=== PATIENT | female | born 1960 | race Caucasian/White ===

== ENCOUNTER 2024-06-28 13:03 | Inpatient (IN) | payer MEDICARE, OTHER ==
[~2024-06-28] VITALS: Ht 170.2 cm; Wt 86.5 kg
[~2024-06-28 13:03] MED LIST: ASPI325 PO; CLOP75 PO; LISI20 PO; METO25ER PO; VITAMIN D PO
[2024-06-28] MEDS ORDERED: HYDROmorphone HCl/Pf 1MG SYR IV ONE ×2 (13:55→16:20)
[2024-06-28] MEDS ORDERED: XIFAXAN550 MG PO (14:29)
[2024-06-28] MEDS ORDERED: CARVEDILOL6.25 MG PO (14:29)
[2024-06-28] MEDS ORDERED: ACAMPROSATE CA333 MG PO (14:29)
[2024-06-28] MEDS ORDERED: K-Dur20 MEQ PO (14:29)
[2024-06-28] MEDS ORDERED: BUPR150ER PO (14:29)
[2024-06-28] MEDS ORDERED: CONSTULOSE10 GM/155 PO (14:30)
[2024-06-28] MEDS ORDERED: FUROSEMIDE20 MG PO (14:30)
[2024-06-28] MEDS ORDERED: LOSA50 PO (14:30)
[2024-06-28] MEDS ORDERED: OxyCODONE HCL 5 MG TAB PO PRN (17:50)
[2024-06-28] MEDS ORDERED: Ondansetron HCl 2 MG / ML 2ML Vial ONE (17:53)
[2024-06-28] MEDS ORDERED: Naloxone HCl 0.4MG / ML 1ML Vial IV PRN (17:55)
[2024-06-28] MEDS ORDERED: HYDROmorphone HCl/Pf 1MG SYR IV PRN (17:55)
[2024-06-28] MEDS ORDERED: Ondansetron HCl 2 MG / ML 2ML Vial IV PRN (17:55)
[2024-06-28] MEDS ORDERED: FLU VACC TS2024-25(6MOS UP)/PF 45 MCG/0.5 ML SYRINGE IM SCH (17:55)
[2024-06-28] MEDS ORDERED: Acetaminophen 325 MG TABLET PO PRN (17:55)
[2024-06-28 18:26] LABS: BASOPHILS ABSOLUTE AUTO 0.09 K/mm3 (0.00-0.23); BASOPHILS PERCENT AUTO 1 % (0-2); EOSINOPHILS ABSOLUTE AUTO 0.05 K/mm3 (0.00-0.68); EOSINOPHILS PERCENT AUTO 1 % (0-6); Hematocrit 36.8 % (33.0-51.0); Hemoglobin 11.8 g/dL (11.5-16.0); IMMATURE GRAN ABSOLUTE AUTO 0.08 K/mm3 (0.00-0.10); IMMATURE GRAN PERCENT AUTO 1 % (0-1); LYMPHOCYTES ABSOLUTE AUTO 1.07 K/mm3 (0.84-5.20); LYMPHOCYTES PERCENT AUTO 11 % (21-46); MONOCYTES ABSOLUTE AUTO 0.41 K/mm3 (0.16-1.47); MONOCYTES PERCENT AUTO 4 % (4-13); Mean Corpuscular HGB 35.4 pg (26.0-34.0); Mean Corpuscular HGB Conc 32.1 g/dL (31.5-36.5); Mean Corpuscular Volume 111 fL (80-100); NEUTROPHILS ABSOLUTE AUTO 8.31 K/mm3 (1.96-9.15); NEUTROPHILS PERCENT AUTO 83 % (41-73); NRBC ABSOLUTE 0.02 K/mm3 (0.00-0.02); NRBC Auto 0.2 /100 WBC (0.0-0.2); Platelet Count 85 K/mm3 (150-400); RDW Coefficient Variation 14.1 % (11.7-14.2); RDW Standard Deviation 57.6 fL (35.1-46.3); Red Blood Cell Count 3.33 M/mm3 (3.80-5.20); White Blood Cell Count 10.01 K/mm3 (4.00-11.30)
[2024-06-28 18:35] LABS: Mean Platelet Volume 13.7 fL (9.1-12.4)
[2024-06-28 18:48] LABS: Albumin, Blood 1.7 g/dL (3.4-5.0); Albumin/Globulin Ratio 0.4 (0.8-1.8); Calcium, Blood 8.7 mg/dL (8.5-10.1); Creatinine, Blood 0.63 mg/dL (0.40-1.00); Globulin, Blood 3.8 g/dL (2.2-4.0); Potassium, Blood 4.4 mmol/L (3.5-5.5); Total Protein, Blood 5.5 g/dL (6.4-8.2)
[2024-06-28] MEDS ORDERED: RifAXIMin 550 MG Tablet PO SCH (21:00)
[2024-06-28] MEDS ORDERED: Docusate Sodium 100 MG Cap PO SCH (21:00)
[2024-06-28] MEDS ORDERED: Carvedilol 6.25 MG Tab PO SCH (21:00)
[2024-06-28] MEDS ORDERED: Lactulose 10 GM/15 ML UDC PO SCH (21:00)
[2024-06-28 22:24] VITALS: BP 146/69
[2024-06-29 02:14] VITALS: BP 135/56
--- NOTE | 2024-06-29 04:33 | NUR ---
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 SHE HAS NAUSEA AND SEVERE R HIP PAIN. PT REPOSTIONED WITH SEVERAL PILLOWS AND WE FOUND A POSITION FOR HER LEG THAT IS MORE COMFORTABLE. APPLIED ICE PACK TO R HIP. PLACED PUREWICK FOR PT COMFORT. ZOFRAN IV FOR NAUSEA. PT ASKING FOR IV DILAUDID FOR R HIP PAIN. DOSE IS 0.5-1MG. HAVE BEEN GIVING 0.5MG AND THEN WAITING 5-15 MINUTES AND THEN GIVING THE OTHER 0.5MG BECAUSE DOING IT THIS WAY SEEMS TO HELP WITH HER NAUSEA, RATHER THAN GIVING 1MG ONE LARGE BOLUS. PT HAS NOT STOOD UP FOR ME THIS SHIFT. SHE IS TOO PAINFUL AND FEARFUL. SHE WILL NEED PHYSICAL THERAPY TO TEACH HER SOME TECHNIQUES TO USE AND TO DETERMINE A SAFE DISCHARGE PLAN, PT LIVES ALONE AND DOESNT HAVE ANYONE AVAILABLE TO TAKE CARE OF HER 24/02.
[2024-06-29 05:38] LABS: BASOPHILS ABSOLUTE AUTO 0.05 K/mm3 (0.00-0.23); BASOPHILS PERCENT AUTO 1 % (0-2); EOSINOPHILS ABSOLUTE AUTO 0.01 K/mm3 (0.00-0.68); EOSINOPHILS PERCENT AUTO 0 % (0-6); Hematocrit 39.8 % (33.0-51.0); Hemoglobin 13.1 g/dL (11.5-16.0); IMMATURE GRAN ABSOLUTE AUTO 0.03 K/mm3 (0.00-0.10); IMMATURE GRAN PERCENT AUTO 0 % (0-1); LYMPHOCYTES ABSOLUTE AUTO 1.15 K/mm3 (0.84-5.20); LYMPHOCYTES PERCENT AUTO 17 % (21-46); MONOCYTES ABSOLUTE AUTO 0.55 K/mm3 (0.16-1.47); MONOCYTES PERCENT AUTO 8 % (4-13); Mean Corpuscular HGB 35.4 pg (26.0-34.0); Mean Corpuscular HGB Conc 32.9 g/dL (31.5-36.5); Mean Corpuscular Volume 108 fL (80-100); NEUTROPHILS PERCENT AUTO 73 % (41-73); Platelet Count 91 K/mm3 (150-400); RDW Coefficient Variation 14.1 % (11.7-14.2); White Blood Cell Count 6.69 K/mm3 (4.00-11.30)
[2024-06-29 06:10] LABS: Albumin, Blood 2.1 g/dL (3.4-5.0); Albumin/Globulin Ratio 0.5 (0.8-1.8); Bilirubin, Total 4.4 mg/dL (0.1-1.0); Bun/Creatinine Ratio 21.7 (12.0-20.0); Calcium, Blood 9.1 mg/dL (8.5-10.1); Creatinine, Blood 0.69 mg/dL (0.40-1.00); Globulin, Blood 3.9 g/dL (2.2-4.0); Magnesium, Blood 1.7 mg/dL (1.6-2.4); Potassium, Blood 4.4 mmol/L (3.5-5.5)
[2024-06-29 07:22] VITALS: BP 129/59
[2024-06-29] MEDS ORDERED: Misc. Tablet PO SCH (09:00)
[2024-06-29] MEDS ORDERED: Furosemide 20 MG Tab PO SCH (09:00)
[2024-06-29] MEDS ORDERED: Potassium Chloride 20 MEQ TabCR PO SCH (09:00)
[2024-06-29] MEDS ORDERED: BuPROPion HCl SR 100 MG TabCR PO SCH (09:00)
[2024-06-29] MEDS ORDERED: Losartan Potassium 50 MG Tab PO SCH (09:00)
[2024-06-29] MEDS ORDERED: Enoxaparin 40 MG/0.4 ML SYR SC SCH (09:00)
[2024-06-29] MEDS ORDERED: Prochlorperazine Maleate 5 MG Tab PO PRN (09:55)
[2024-06-29] MEDS ORDERED: HYDROmorphone HCl 2 MG Tab PO PRN (09:55)
[2024-06-29] MEDS ORDERED: Losartan Potassium 25 MG Tab PO SCH (10:00)
[2024-06-29] MEDS ORDERED: Lactulose 20 GM/30 ML UDC PO SCH (10:00)
--- NOTE | 2024-06-29 10:49 | NUR ---
CONTACTED [facility] WHO ADVISED THIS NURSE THAT DR LANE IS IN SURGERY AND WILL NEED TO CONTACT ON CELL PHONE. TRIED DR LANE HOWEVER UNABLE TO REACH MESSAGE LEFT FOR RETURN CALL
--- NOTE | 2024-06-29 14:28 | NUR ---
REQUSET FOR THERAPY DOG VISIT PLACED. THERAPY DOG VISIT PATIENT AND PATIENT REQUESTS FUTHER VISIT. PATIENT ENJOYED VISIT
--- NOTE | 2024-06-29 15:09 | NUR ---
LATE ENTRY: 1315- ORTHO DR LANE CONSULTED PATIENT AT BEDSIDE. PATIETN WEIGHT BEARING SEBASTIÁN. PATIENT ORDERED CT- PENDING RADIOLOGY TIME.
[2024-06-29 16:01] VITALS: BP 91/58
[2024-06-29] MEDS ORDERED: Lactated Ringer's 1,000 ML IV SCH ×3 (16:10→17:00)
--- NOTE | 2024-06-29 16:55 | NUR ---
CONTACTED DR PRICE REGARDING PATIENT BP READING OF 104/48 (65) AND 91/58 (68) WITH OUTPUT OF 175. RECEIVED ORDER FOR BOLUS OF LR AT 500/HR FOR 2 HOURS AND THEN LR AT 75/HR FOR MAINTANCE FLUIDS. PATIENT PULSE OX 78% ON RA, OXYGEN PLACED ON PATIENT AND TITRATED TO 3L TO MAINTAIN SATS OVER 93% DR AWARE OF OXYGEN PLACEMENT. SEE E-MAR FOR ORDERS. PATIENT RESTING COMFORTALBLY IN BED WITH CALL LIGHT AT SIDE.
--- NOTE | 2024-06-29 18:14 | NUR ---
PATIENT A/O X 4. PATIENT ON 3L OF OXYGEN PULSE OX 95%, PATIENT HAS LR INFUSING AT 75/HR AFTER A BOLUS OF LACTATED RINGER OF 1000ML. PATIENT HAS CT SCAN OF RIGHT PELVIC AREA COMPLETED. PATIENT IS CURRENTLY WEIGHT BEARING TOLERATED HOWEVER PATIENT HAS DIFFICULTY MOVING. PATIENT WILL CONTINUE TO WORK WITH PHYSICAL THERAPY PENDING DISPOSTION.
[2024-06-29 19:51] VITALS: BP 102/49
[2024-06-29] MEDS ORDERED: Prochlorperazine Edisylate 10 mg Vial IV PRN (20:05)
[2024-06-30] VITALS (49 sets, daily range): BP systolic 81–128; BP diastolic 38–66
[2024-06-30 07:02] LABS: Albumin, Blood 1.9 g/dL (3.4-5.0); Albumin/Globulin Ratio 0.5 (0.8-1.8); Bilirubin, Total 3.4 mg/dL (0.1-1.0); Bun/Creatinine Ratio 16.2 (12.0-20.0); Calcium, Blood 8.9 mg/dL (8.5-10.1); Creatinine, Blood 1.85 mg/dL (0.40-1.00); Globulin, Blood 3.6 g/dL (2.2-4.0); Potassium, Blood 5.1 mmol/L (3.5-5.5); Total Protein, Blood 5.5 g/dL (6.4-8.2)
--- NOTE | 2024-06-30 07:29 | NUR ---
PRIVATE WEALTH ADVISOR SUMMARY NEW IV COMPAZINE ORDER HAS PREVENTED PT FROM VOMITTING. GIVING 1MG IV DILAUDID IN 0.5MG INCREMENTS 10-15 MINUTES APART TO PREVENT N/V. BLOOD PRESSURES HAVE BEEN A LITTLE SOFT BUT PT DENIES SYMPTOMS AND SHE HAS BEEN ALERT AND ORIENTED. HER URINE OUTPUT HAS BEEN A LITTLE LOW (SEE I&O) 0731: PT BLOOD PRESSURE HAS GOTTEN EVEN LOWER (80/40) AND MORNING LABS ARE CONCERNING. DONYA, THE DAY SHIFT RN IS CALLING THE DOCTOR NOW. PT REMAINS ASYMPTOMATIC AT THIS TIME.
[2024-06-30] MEDS ORDERED: Lactated Ringer's 1,000 ML IV SCH (07:35)
--- NOTE | 2024-06-30 07:36 | NUR ---
CONTACTED DR PRICE REGARDING BP 75/31 RIGHT 81/42. PATIENT IS A/O X 4, PATIENT CURRENTLY ON O2 2L WITH PULSE OX 95%. PATIENT TO TRANSFER TO PCU. PATIENT HAS BEEN ADVISED OF TRANSFER
[2024-06-30] MEDS ORDERED: FentaNYL Citrate 50 MCG/ML 2 ML Injection IV PRN (07:40)
[2024-06-30] MEDS ORDERED: Albumin (Human) 25gm/100ml 100 ML IV SCH (07:45)
[2024-06-30] MEDS ORDERED: NS 500 ML IV SCH (08:00)
[2024-06-30 10:23] LABS: BASOPHILS ABSOLUTE AUTO 0.04 K/mm3 (0.00-0.23); BASOPHILS PERCENT AUTO 0 % (0-2); EOSINOPHILS ABSOLUTE AUTO 0.04 K/mm3 (0.00-0.68); EOSINOPHILS PERCENT AUTO 0 % (0-6); Hematocrit 32.5 % (33.0-51.0); Hemoglobin 10.6 g/dL (11.5-16.0); IMMATURE GRAN ABSOLUTE AUTO 0.09 K/mm3 (0.00-0.10); IMMATURE GRAN PERCENT AUTO 1 % (0-1); LYMPHOCYTES ABSOLUTE AUTO 1.38 K/mm3 (0.84-5.20); LYMPHOCYTES PERCENT AUTO 13 % (21-46); MONOCYTES ABSOLUTE AUTO 1.02 K/mm3 (0.16-1.47); MONOCYTES PERCENT AUTO 9 % (4-13); Mean Corpuscular HGB 35.8 pg (26.0-34.0); Mean Corpuscular HGB Conc 32.6 g/dL (31.5-36.5); Mean Corpuscular Volume 110 fL (80-100); NEUTROPHILS ABSOLUTE AUTO 8.34 K/mm3 (1.96-9.15); NEUTROPHILS PERCENT AUTO 77 % (41-73); RDW Coefficient Variation 14.3 % (11.7-14.2); RDW Standard Deviation 57.3 fL (35.1-46.3); Red Blood Cell Count 2.96 M/mm3 (3.80-5.20); White Blood Cell Count 10.91 K/mm3 (4.00-11.30)
[2024-06-30 10:25] LABS: Mean Platelet Volume 13.4 fL (9.1-12.4)
--- NOTE | 2024-06-30 10:35 | NUR ---
REPORT CALLED TO ICU TALKED TO LETA. PATIENT TRANSPORTED VIA BED WITH STAFF.
[2024-06-30 10:44] LABS: Platelet Count 78 K/mm3 (150-400)
--- NOTE | 2024-06-30 12:41 | NUR ---
PATIENT ARRIVED TO UNIT AND WAS TRANSFERRED TO NEW BED VIA SLIDER SHEET. VITAL SIGNS STABLE AND ORIENTED TO UNIT.
--- NOTE | 2024-06-30 12:48 | NUR ---
PT TRANSFER FROM MEDICAL FLOOR: PT TRANSFER FROM MEDICAL FLOOR PCU STATUS TO ICU 2 FOR HYPOTENSION. PT A/Ox4 AND PLEASANT W/CARE. PT SINCE HAS TRANSFERRED TO PCU 11, REPORT GIVEN TO EVELYN VALENCIA.
[2024-06-30] MEDS ORDERED: Midodrine 5 MG Tab PO SCH (14:00)
--- NOTE | 2024-06-30 14:12 | NUR ---
PATIENT ATE LUNCH AND VISITED WITH NEPHEW, STRAIGHT CATH URINE ANALYSIS DONE AND SENT OFF.
[2024-06-30 15:09] LABS: Source, Urine Foley catheter
[2024-06-30 15:17] LABS: Appearance, Urine Cloudy (Clear); Bilirubin, Urine Neg (Neg); Blood, Urine Neg (Neg); Color, Urine Yellow (P-Yellow); Glucose Qualitative, Urine Neg (Neg); Ketones, Urine Neg (Neg); Leukocyte Esterase, Urine 1+ (Neg); Nitrite, Urine Neg (Neg); Protein, Urine 2+ (Neg); Urobilinogen, Urine 1+ (Normal)
[2024-06-30 15:33] LABS: Bacteria Many /hpf; Mucus Heavy (0-Heavy); Red Blood Cells, Urine 0-2 /hpf (0-2); Squamous Epithelial Cells Few /hpf (Few)
--- NOTE | 2024-06-30 15:56 | NUR ---
CALL PLACED TO AND DID NOT ANSWER, VOICEMAIL LEFT TO CALL BACK REGARDING UA RESULTS AND BLOOD PRESSURE MAP. AWAITING FOR A CALL BACK.
--- NOTE | 2024-06-30 16:25 | NUR ---
TRANSFER NOTE: REPORT WAS CALLED TO OFFICE CLINICIAN TAKING PATIENT AND MADE AWARE OF THE LOW BLOOD PRESSURE READINGS. PATIENT AWARE OF THE TRANSFER AND WILL GO OVER VIA BED WITH ALL PERSONAL BELONGINGS.
--- NOTE | 2024-06-30 16:32 | NUR ---
DARRELL KULKARNI WAS MADE AWARE OF THE PATIENTS TRANSFER TO ICU 2. ASKED ABOUT VISITING HOURS WILL NOTIFY THE RECEIVING RN THAT DARRELL PLANS TO VISIT LATER TODAY.
[2024-06-30] MEDS ORDERED: CefTRIAXone Sodium 1,000 MG in NS 100 ML IV SCH (17:00)
[2024-06-30 18:11] LABS: Albumin, Blood 2.4 g/dL (3.4-5.0); Albumin/Globulin Ratio 0.8 (0.8-1.8); Bilirubin, Total 2.9 mg/dL (0.1-1.0); Bun/Creatinine Ratio 17.2 (12.0-20.0); Calcium, Blood 8.7 mg/dL (8.5-10.1); Creatinine, Blood 2.09 mg/dL (0.40-1.00); Magnesium, Blood 1.9 mg/dL (1.6-2.4); Potassium, Blood 4.4 mmol/L (3.5-5.5); Total Protein, Blood 5.4 g/dL (6.4-8.2)
--- NOTE | 2024-06-30 18:40 | NUR ---
SHIFT SUMMARY: PT TRANSFERRED BACK TO ICU 2 ICU STATUS FOR HYPOTENSION. PT A/Ox4 AND PLEASANT W/CARE. BP LOW, SBP 90s. PT DENIES CHEST PAIN OR PRESSURE. MONITOR SHOWS SINUS RYTHM RATE 80s. SPO2>95% ON 2L NC. DEE CALLED REGARDING CRITICAL LACTIC ACID. DEE WOULD LIKE TO START PT ON LEVOPHED GTT. PT DENIES SIGNIFICANT PAIN, ABLE TO BE RELIEVED W/ REPOSITIONING. PT HAD STRAIGHT CATH X1 IN PCU. CALL LIGHT IN REACH. WILL REPORT TO ONCOMING RN.
--- NOTE | 2024-06-30 21:08 | NUR ---
ASSUMED CARE OF PT AT 1900. REPORT RECEIVED AT BEDSIDE. PT PRESENTS IN BED. SLEEPING. HAVE NOTED RESPIRATION TREND TO 8-10 AT TIMES. PT AWAKENS EASILY WITHOUT ANY COMPLAINTS OF DYSPNEA OR SOB. PT ALERT AND ORIENTED WHILE AWAKE. PLEASANT AND COOPERATIVE WITH CARE AND ASSESSMENT.
[2024-07-01] VITALS (82 sets, daily range): BP systolic 74–162; BP diastolic 32–94
--- NOTE | 2024-07-01 01:05 | NUR ---
PT HAS NOT HAD ANY REQUESTS FOR PAIN MEDICATION. IS ABLE TO TURN HERSELF IN BED. PUREWICK IN PLACE. LEVOPHED HAS BEEN TITRATED DOWN TO 2 MCG'S/MIN. BLOOD PRESSURES REAMIN WITH MAP > 65.
--- NOTE | 2024-07-01 08:00 | NUR ---
Major of care: Patient sleepy but arouses to voice. Oriented x4 with no discomfort. MAPs maintained at greater than or equal to 65 on 2 mcgs of norepi, in NSR, pulses all palpable. Attempted to wean O2 but she de-saturated to 83% so placed back on 3L NC. Bladder scan showing 400cc of urine so straight cathed x1 with 350cc out. Good appetite. Will continue to try to wean norepi gtt as able.
[2024-07-01 09:59] LABS: BASOPHILS ABSOLUTE AUTO 0.09 K/mm3 (0.00-0.23); BASOPHILS PERCENT AUTO 1 % (0-2); EOSINOPHILS ABSOLUTE AUTO 0.16 K/mm3 (0.00-0.68); EOSINOPHILS PERCENT AUTO 2 % (0-6); Hematocrit 29.9 % (33.0-51.0); Hemoglobin 9.8 g/dL (11.5-16.0); IMMATURE GRAN ABSOLUTE AUTO 0.06 K/mm3 (0.00-0.10); IMMATURE GRAN PERCENT AUTO 1 % (0-1); LYMPHOCYTES PERCENT AUTO 20 % (21-46); MONOCYTES ABSOLUTE AUTO 1.09 K/mm3 (0.16-1.47); MONOCYTES PERCENT AUTO 14 % (4-13); Mean Corpuscular HGB 35.3 pg (26.0-34.0); Mean Corpuscular HGB Conc 32.8 g/dL (31.5-36.5); Mean Corpuscular Volume 108 fL (80-100); NEUTROPHILS ABSOLUTE AUTO 5.01 K/mm3 (1.96-9.15); NEUTROPHILS PERCENT AUTO 63 % (41-73); Platelet Count 70 K/mm3 (150-400); RDW Coefficient Variation 13.9 % (11.7-14.2); Red Blood Cell Count 2.78 M/mm3 (3.80-5.20); White Blood Cell Count 8.01 K/mm3 (4.00-11.30)
[2024-07-01 10:20] LABS: Albumin, Blood 2.2 g/dL (3.4-5.0); Albumin/Globulin Ratio 0.8 (0.8-1.8); Bilirubin, Total 2.3 mg/dL (0.1-1.0); Bun/Creatinine Ratio 25.6 (12.0-20.0); Calcium, Blood 8.5 mg/dL (8.5-10.1); Creatinine, Blood 1.6 mg/dL (0.40-1.00); Globulin, Blood 2.9 g/dL (2.2-4.0); Magnesium, Blood 1.9 mg/dL (1.6-2.4); Phosphorus, Blood 3.3 mg/dL (2.5-4.9); Potassium, Blood 4.4 mmol/L (3.5-5.5); Total Protein, Blood 5.1 g/dL (6.4-8.2)
[2024-07-01] MEDS ORDERED: Midodrine 5 MG Tab PO SCH (14:00)
--- NOTE | 2024-07-01 18:00 | NUR ---
Shift summary: Remains drowsy throughout the day but arounses to verbal stimuli/light touch & is oriented & cooperative. Remains in NSR in the 60s but unable to wean off norepi gtt - currently at 3 mcgs/kg with a MAP of 65. 3L NC is keeping her oxygen saturation in the high 90s. She does have a congested cough. She experienced urinary retention throughout the day necessitating straight cath x2 with roughly 700cc of output. Poor appetite. She complains of pain to the R hip but due to severe drowsiness only medicated with Tylenol. Will continue to monitor & attempt to wean norepi gtt.
[2024-07-02] VITALS (41 sets, daily range): BP systolic 115–152; BP diastolic 40–100
[2024-07-02] MEDS ORDERED: OxyCODONE HCL 5 MG TAB PO PRN (02:00)
[2024-07-02 03:38] LABS: BASOPHILS PERCENT AUTO 1 % (0-2); EOSINOPHILS ABSOLUTE AUTO 0.21 K/mm3 (0.00-0.68); EOSINOPHILS PERCENT AUTO 3 % (0-6); Hematocrit 29.7 % (33.0-51.0); IMMATURE GRAN ABSOLUTE AUTO 0.07 K/mm3 (0.00-0.10); IMMATURE GRAN PERCENT AUTO 1 % (0-1); LYMPHOCYTES ABSOLUTE AUTO 1.81 K/mm3 (0.84-5.20); LYMPHOCYTES PERCENT AUTO 23 % (21-46); MONOCYTES ABSOLUTE AUTO 1.15 K/mm3 (0.16-1.47); MONOCYTES PERCENT AUTO 15 % (4-13); Mean Corpuscular HGB 35.7 pg (26.0-34.0); Mean Corpuscular HGB Conc 33.7 g/dL (31.5-36.5); Mean Corpuscular Volume 106 fL (80-100); Mean Platelet Volume 12.7 fL (9.1-12.4); NEUTROPHILS ABSOLUTE AUTO 4.48 K/mm3 (1.96-9.15); NEUTROPHILS PERCENT AUTO 57 % (41-73); Platelet Count 80 K/mm3 (150-400); RDW Coefficient Variation 13.8 % (11.7-14.2); RDW Standard Deviation 53.3 fL (35.1-46.3); White Blood Cell Count 7.82 K/mm3 (4.00-11.30)
[2024-07-02 03:54] LABS: Magnesium, Blood 1.9 mg/dL (1.6-2.4)
[2024-07-02 04:10] LABS: Albumin, Blood 2.2 g/dL (3.4-5.0); Albumin/Globulin Ratio 0.8 (0.8-1.8); Bilirubin, Total 3.6 mg/dL (0.1-1.0); Bun/Creatinine Ratio 31.5 (12.0-20.0); Creatinine, Blood 1.11 mg/dL (0.40-1.00); Globulin, Blood 2.9 g/dL (2.2-4.0); Phosphorus, Blood 2.8 mg/dL (2.5-4.9); Potassium, Blood 4.5 mmol/L (3.5-5.5); Total Protein, Blood 5.1 g/dL (6.4-8.2)
[2024-07-02 04:26] LABS: Source, Urine Foley catheter
[2024-07-02 04:30] LABS: Bilirubin, Urine Neg (Neg); Blood, Urine 2+ (Neg); Glucose Qualitative, Urine Neg (Neg); Ketones, Urine Neg (Neg); Leukocyte Esterase, Urine 1+ (Neg); Nitrite, Urine Neg (Neg); Protein, Urine 1+ (Neg); Specific Gravity, Urine 1.015 (1.003-1.022); Urobilinogen, Urine NORM (Normal)
[2024-07-02 04:40] LABS: Appearance, Urine Clear (Clear); Color, Urine Yellow (P-Yellow)
[2024-07-02 04:49] LABS: Amorphous Light (0-Heavy); Bacteria Rare /hpf; Red Blood Cells, Urine 0-2 /hpf (0-2); Squamous Epithelial Cells Rare /hpf (Few); Yeast/Fungi Urine Few /hpf
--- NOTE | 2024-07-02 05:41 | NUR ---
SHIFT SUMMERY PT HAS BEEN ALERT AND ORIENTED TO SELF AND PLACE. SHE HAS BEEN SB-SR ON THE AUTOMOBILE ACCESSORIES SALESPERSON. LEVO INFUSING TO MAINTAIN MAP >65. PT HAS BEEN AFEBRILE. PT REQUIRED PLACEMENT OF HODGE CATH FOR URINARY RETENTION. PAIN MANAGED PER MD ORDERS-SEE EMAR. PT IS ON BEDREST. HER OXYGEN SAT DROPS TO 88-89% WHILE SLEEPING SO SHE WAS PLACED ON 1-3L NC WHILE RESTING. STRONG PULSES DISTAL TO PELVIS.
[2024-07-02 16:08] LABS: Bun/Creatinine Ratio 35.1 (12.0-20.0); Calcium, Blood 8.8 mg/dL (8.5-10.1); Creatinine, Blood 0.91 mg/dL (0.40-1.00); Potassium, Blood 4.6 mmol/L (3.5-5.5)
--- NOTE | 2024-07-02 16:58 | NUR ---
SUMMARY PT A/O X4. OOB TO CHAIR WITH FWW, GAITBELT, AND 1 PERSON ASSIST FOR A COUPLE HOURS TODAY. PARTICIPATED WITH PHYSICAL THERAPY AND OT. TITRATED OFF LEVOPHED AT 0800, MAPS 65 OR GREATER. ONE DOSE OF OXYCODONE FOR PAIN. USING CALL LIGHT APPROPRIATELY. NOT MUCH OF AN APPETITE BUT WILL DRINK ENSURE. NO SIGN OF DISTRESS.
--- NOTE | 2024-07-02 18:30 | NUR ---
Summary. Assumed care at approximately 1700. Report received from offgoing RN. Pt resting in bed, alert and oriented, denies needs. Call light within reach. No acute events this shift per report. See chart for further details.
[2024-07-03] VITALS (14 sets, daily range): BP systolic 119–149; BP diastolic 38–65
[2024-07-03 03:44] LABS: BASOPHILS ABSOLUTE AUTO 0.11 K/mm3 (0.00-0.23); BASOPHILS PERCENT AUTO 2 % (0-2); EOSINOPHILS ABSOLUTE AUTO 0.41 K/mm3 (0.00-0.68); EOSINOPHILS PERCENT AUTO 6 % (0-6); Hematocrit 29.8 % (33.0-51.0); Hemoglobin 9.9 g/dL (11.5-16.0); IMMATURE GRAN ABSOLUTE AUTO 0.04 K/mm3 (0.00-0.10); IMMATURE GRAN PERCENT AUTO 1 % (0-1); LYMPHOCYTES ABSOLUTE AUTO 2.47 K/mm3 (0.84-5.20); LYMPHOCYTES PERCENT AUTO 33 % (21-46); MONOCYTES ABSOLUTE AUTO 1.15 K/mm3 (0.16-1.47); MONOCYTES PERCENT AUTO 16 % (4-13); Mean Corpuscular HGB Conc 33.2 g/dL (31.5-36.5); Mean Corpuscular Volume 108 fL (80-100); Mean Platelet Volume 12.4 fL (9.1-12.4); NEUTROPHILS ABSOLUTE AUTO 3.24 K/mm3 (1.96-9.15); NEUTROPHILS PERCENT AUTO 44 % (41-73); Platelet Count 84 K/mm3 (150-400); RDW Coefficient Variation 14.4 % (11.7-14.2); RDW Standard Deviation 55.6 fL (35.1-46.3); Red Blood Cell Count 2.75 M/mm3 (3.80-5.20); White Blood Cell Count 7.42 K/mm3 (4.00-11.30)
[2024-07-03 03:59] LABS: Bun/Creatinine Ratio 30.2 (12.0-20.0); Calcium, Blood 8.8 mg/dL (8.5-10.1); Creatinine, Blood 0.73 mg/dL (0.40-1.00); Magnesium, Blood 1.7 mg/dL (1.6-2.4); Potassium, Blood 4.6 mmol/L (3.5-5.5)
--- NOTE | 2024-07-03 06:17 | NUR ---
SHIFT SUMMERY PT HAS BEEN ALERT AND ORIENTED X4. SHE IS SR ON THE MANAGER OF ADMINISTRATION. BP HAS BEEN WNL, SHE HAS NOT REQUIRED THE SUPPPORT OF PRESSORS THIS SHIFT. AFEBRILE. HODGE CATH INTACT PATENT AND DRAINING TO GRAVITY. PT HAS HAD NO ACUTE CHANGES OVERNIGHT.
[2024-07-03] MEDS ORDERED: Dextrose 5% 1,000 ML IV SCH (08:00)
--- NOTE | 2024-07-03 09:50 | NUR ---
PT TRANSFER: PT TRANSFER TO MEDICAL FLOOR, REPORT GIVEN TO LIZBETH VALENCIA.
--- NOTE | 2024-07-03 10:15 | NUR ---
TRANSFER NOTE: PT TRANSFERED FROM ICU 2 TO [place] [id number], PT AOX4 AND IN PLEASANT MOOD AND AFFECT. CONCERNED FOR A LOST PHONE BUT COULD NOT BE LOCATED BY THIS RN IN PRIOR ROOMS AND CHECKED WITH SECURITY. PT STOOD AND PIVOTED WITH 1PA AND FWW FROM WHEELCHAIR INTO BED. IN GOOD SPIRITS. STILL HAS A FOLLEY IN PLACE WITH GOOD OUTPUT. PT CAME UP WITH NEPHEW WHO IS AT BEDSIDE. PT ORIENTED TO ROOM, AND MEDICATED FOR PAIN PER EMR. FLUIDS RUNNING, BED IN LOWEST POSITION AND CALL LIGHT IN REACH. CONTINUING CARE,.
--- NOTE | 2024-07-03 17:48 | NUR ---
SHIFT SUMMARY: PT AOX4 TRANSFER FROM ICU. PT ABLE TO STAND PIVOT AND INTO THE BED WITH FWW AND MINIMAL ASSIST. IN VERY PLEASANT MOOD AND AFFECT, COMPLIANT IN CARE. WILL CALL APPROPRIATELY. MIDIODORONE GIVEN PER EMR. BLOOD PRESSURE STABLE. TOLERATING DIET. COMPLAINED OF A LOST PHONE, CALLED PREVIOUS UNITS AND SECURITY AND COULD NOT BE FOUND. PT CURRENTLY RESTING IN BED, WITH BED IN LOWEST POSITION AND CALL LIGHT IN REACH. CONTINUING CARE.
[2024-07-04 04:04] VITALS: BP 135/57
--- NOTE | 2024-07-04 04:39 | NUR ---
SHIFT SUMM: PT IS A 64 YO FULL CODE WHO WAS TRANSPORTED FROM THE ICU TO MEDICAL FLOOR FOR A R HIP FRACTURE OF THE RAMUS R PUBIS. THERE IS BRUISING IN THE RIGHT CALF WELL. PT HAS A HODGE BUT CAN PIVOT TRANSFER W/ONE ASSIST TO THE BSC IF NEEDED. PT IS A&OX4 AND ON 2L OF NC. PT STARTED THE SHIFT WITH D5 RUNNING AT 125 ML/HR. PT IS COOPERATIVE AND PLEASANT TO CARE FOR. PT RECEIVED 10MG OF OXYCODONE (SEE EMAR) FOR PAIN AT THE BEGINNING OF THE SHIFT. PT HAS ANTHONY COLORED URINE IN HODGE BAG. CALL LIGHT IN REACH AND NO REQUESTS AT THIS TIME.
[2024-07-04 05:18] LABS: Hematocrit 29.9 % (33.0-51.0); Hemoglobin 9.9 g/dL (11.5-16.0); Mean Corpuscular HGB 35.9 pg (26.0-34.0); Mean Corpuscular HGB Conc 33.1 g/dL (31.5-36.5); Mean Corpuscular Volume 108 fL (80-100); Mean Platelet Volume 12.7 fL (9.1-12.4); NRBC ABSOLUTE 0.02 K/mm3 (0.00-0.02); NRBC Auto 0.3 /100 WBC (0.0-0.2); Platelet Count 81 K/mm3 (150-400); RDW Coefficient Variation 14.5 % (11.7-14.2); Red Blood Cell Count 2.76 M/mm3 (3.80-5.20); White Blood Cell Count 7.49 K/mm3 (4.00-11.30)
[2024-07-04 05:53] LABS: Albumin/Globulin Ratio 0.7 (0.8-1.8); Bilirubin, Total 2.6 mg/dL (0.1-1.0); Bun/Creatinine Ratio 23.9 (12.0-20.0); Calcium, Blood 8.8 mg/dL (8.5-10.1); Creatinine, Blood 0.71 mg/dL (0.40-1.00); Magnesium, Blood 1.5 mg/dL (1.6-2.4); Phosphorus, Blood 2.9 mg/dL (2.5-4.9); Potassium, Blood 4.7 mmol/L (3.5-5.5)
[2024-07-04 06:25] LABS: BAND PERCENT MAN 2 % (0-8); BASOPHILS ABSOLUTE MAN 0.14 K/mm3 (0.00-0.23); BASOPHILS PERCENT MAN 2 % (0-2); EOSINOPHILS ABSOLUTE MAN 0.74 K/mm3 (0.00-0.68); EOSINOPHILS PERCENT MAN 10 % (0-6); LYMPHOCYTES ABSOLUTE MAN 2.69 K/mm3 (0.84-5.20); LYMPHOCYTES PERCENT MAN 36 % (21-46); MONOCYTES ABSOLUTE MAN 0.59 K/mm3 (0.16-1.47); MONOCYTES PERCENT MAN 8 % (4-13); MYELOCYTE ABSOLUTE MAN 0.07 K/mm3 (0.00-0.00); MYELOCYTE PERCENT MAN 1 % (0-0); NEUTROPHILS ABSOLUTE MAN 3.22 K/mm3 (1.96-9.15); SEG NEUTROPHILS PERCENT MAN 41 % (41-73); TOTAL CELLS COUNTED 100
[2024-07-04 07:54] VITALS: BP 125/57
[2024-07-04] MEDS ORDERED: Mag Sulfate 1 GM/D5% 100ML 100 ML IV STA (07:56)
[2024-07-04] MEDS ORDERED: NS 500 ML IV ONE (08:32)
[2024-07-04 14:03] VITALS: BP 125/65
--- NOTE | 2024-07-04 14:12 | NUR ---
PT IS A&OX4, VSS AND ON 1L nc WITH PLANS FOR TITRATION TO BASELINE, RA. PT HAS NO QUESTIONS OR CONCERNS AT THIS TIME.
[2024-07-04 16:04] VITALS: BP 137/57
[2024-07-04 19:32] VITALS: BP 139/56
[2024-07-05 04:18] VITALS: BP 127/53
--- NOTE | 2024-07-05 06:32 | NUR ---
SHIFT SUMMARY: A&OX4, PLEASANT AND APPRECIATIVE OF CARES. VSS ON 1L NC. MIDODRINE HELD THIS SHIFT FOR SYS BP >130. PER TELEMETRY PT IS SR @ 81. C/O PAIN 02/10 IN HER HIP, MANAGED WITH PRN 10 MG PO OXYCODONE. NOOB THIS SHIFT. HODGE CATHETER DRAINING LARGE AMOUNTS OF ANTHONY COLORED URINE TO GRAVITY. NO BM THIS SHIFT. REPOSITIONED TOLERATED AND REQUESTED. BED IN LOWEST POSITION, CALL LIGHT WITHIN REACH.
[2024-07-05 07:06] VITALS: BP 122/50
[2024-07-05] MEDS ORDERED: Carvedilol 3.125 MG Tab PO SCH (09:00)
[2024-07-05] MEDS ORDERED: Acetaminophen325 M1 PO (10:52)
[2024-07-05] MEDS ORDERED: MIDO5 PO (10:53)
[2024-07-05 10:55] LABS: CORONAVIRUS COVID-19 AG Negative (NEGATIVE)
[2024-07-05] MEDS ORDERED: OXAYDO5 M2 PO (11:00)
[2024-07-05] MEDS ORDERED: NALOXONE HCL4 MG INH (11:04)
--- NOTE | 2024-07-05 12:37 | NUR ---
PT WAS DICHARGED TO REHAB FACILITY. PT HAS NO QUESTIONS OR CONCERS WITH PLANS OR MEDICATIONS. GAVE PT REPORT TO GREG VALENCIA AT FACILITY.
== END 2024-07-05 11:51 | DRG 963 ==
LOC: ER 13:03 → MEDS 13:04 → ERHOLD 13:04 → MEDS 22:11 → ICUE 06-29 15:03 → MEDS 06-29 15:04 → ICUE 06-30 10:50 → PCU 06-30 12:32 → ICUE 06-30 16:52 → MEDS 07-03 09:53
PROVIDERS: Internal Medicine; ADMIT Student in an Organized Health Care Education/Training Program
PROC: 3E033XZ Introduction of Vasopressor into Peripheral Vein, Percutaneous Approach (ICD-10-PCS; 2024-06-30)
PROC: 0T9B70Z Drainage of Bladder with Drainage Device, Via Natural or Artificial Opening (ICD-10-PCS; principal; 2024-07-01)
DX: S32.591A Other specified fracture of right pubis, initial encounter for closed fracture (principal); R57.1 Hypovolemic shock; S36.899A Unspecified injury of other intra-abdominal organs, initial encounter; E87.0 Hyperosmolality and hypernatremia; N17.9 Acute kidney failure, unspecified; N39.0 Urinary tract infection, site not specified; S32.19XA Other fracture of sacrum, initial encounter for closed fracture; I10 Essential (primary) hypertension; E78.5 Hyperlipidemia, unspecified; Z96.659 Presence of unspecified artificial knee joint; I25.10 Atherosclerotic heart disease of native coronary artery without angina pectoris; W18.39XA Other fall on same level, initial encounter; K70.30 Alcoholic cirrhosis of liver without ascites; E88.09 Other disorders of plasma-protein metabolism, not elsewhere classified; R09.02 Hypoxemia; D69.59 Other secondary thrombocytopenia; F10.21 Alcohol dependence, in remission; Z88.0 Allergy status to penicillin; Z79.82 Long term (current) use of aspirin; Z79.811 Long term (current) use of aromatase inhibitors; Z79.899 Other long term (current) drug therapy; Z95.5 Presence of coronary angioplasty implant and graft; Z79.02 Long term (current) use of antithrombotics/antiplatelets
CPT/HCPCS: 36415; 51701; 51702; 71045; 72192; 72220; 73502; 80048; 80053; 81001; 82570; 83605; 83735; 83930; 83935; 84100; 84300; 85025; 87040; 87086; 87426-QW; 94760; 94762; 96374; 96375; 96376; 97110; 97162; 97165; 97530; 97535; 99285-25; A9270; G0378; J0696; J0780; J1171; J2405; J3010; J3475; J7040; J7060; J7070; J7120; P9047

== ENCOUNTER → 2025-03-23 | Outpatient (CLI) | payer MEDICARE, OTHER ==
[~2025-03-23] MED LIST changes: +ACAMPROSATE CA333 MG PO; +Acetaminophen325 M1 PO; +BUPR150ER PO; +CARVEDILOL6.25 MG PO; +CONSTULOSE10 GM/155 PO; +FUROSEMIDE20 MG PO; +K-Dur20 MEQ PO; +LOSA50 PO; +MIDO5 PO; +NALOXONE HCL4 MG INH; +OXAYDO5 M2 PO; +XIFAXAN550 MG PO
[2025-03-24 13:56] LABS: Chlamydia Trachomatis Cervix NOT DETECTED (NOT DETECT); Neisseria Gonorrhoea Cervix NOT DETECTED (NOT DETECT)
[2025-03-25 10:18] LABS: HPVG SOURCE Cervix
== END | disposition home or self-care (01) ==
LOC: LAB 15:00 → LAB SHORT 15:00
DX: Z01.419 Encounter for gynecological examination (general) (routine) without abnormal findings (principal)
CPT/HCPCS: 87491; 87591; 87624; 87625; G0145